=== PATIENT | male | born 1980 | race Caucasian/White ===

== ENCOUNTER 2023-08-07 10:20 | Outpatient (CLI) | payer OTHER ==
[2023-08-07 12:14] LABS: Anion Gap 11 mmol/L (10-20); BUN (Urea Nitrogen) 13 mg/dL (8.9-20.6); Calc. Creatinine Clearance 0 mL/min (70-130); Calcium 8.9 mg/dL (7.8-10.44); Carbon Dioxide 27 mmol/L (22-29); Chloride 108 mmol/L (98-107); Estimated GFR 110; Glucose 82 mg/dL (70-105); Sodium 142 mmol/L (136-145)
== END 2023-08-07 10:21 | disposition home or self-care (01) ==
LOC: CSHLAB 10:20
PROVIDERS: ATTEND Surgery
DX: Z01.818 Encounter for other preprocedural examination (principal); K40.90 Unilateral inguinal hernia, without obstruction or gangrene, not specified as recurrent
CPT/HCPCS: 80048; 93005; 93010

== ENCOUNTER 2023-08-09 05:55 | Day surgery (SDC) | payer OTHER ==
[2023-08-07 11:06] VITALS: BMI 27.1
[2023-08-09] MEDS ORDERED: Bupivacaine PF 0.5% 30 ML VIAL ONE (06:33)
[2023-08-09] MEDS ORDERED: EPINEPHrine 1 MG/ML VIAL ONE (06:33)
[2023-08-09] MEDS ORDERED: Midazolam HCl 2 mg/2 ml Vial ONE ×2 (07:13→07:21)
[2023-08-09] MEDS ORDERED: Clindamycin/D5W 600 mg/50 ml Premix Bag ONE (07:19)
[2023-08-09] MEDS ORDERED: Lidocaine 1% PF 5 ML VIAL ONE (07:21)
[2023-08-09] MEDS ORDERED: PROPOFOL 20 ML ONE (07:21)
[2023-08-09] MEDS ORDERED: Dexamethasone 4 mg/ml Vial ONE (07:21)
[2023-08-09] MEDS ORDERED: Esmolol 100 MG/10 ML VIAL ONE (07:21)
[2023-08-09] MEDS ORDERED: Ondansetron PF 4 MG/2 ML Vial ONE (07:21)
[2023-08-09] MEDS ORDERED: Rocuronium Bromide 10 MG/ML (10ML VIAL) ONE (07:21)
[2023-08-09] MEDS ORDERED: fentaNYL 50 mcg/mL 1 mL Vial ONE ×2 (07:21→07:46)
[2023-08-09] MEDS ORDERED: Ketorolac Tromethamine 30 MG (1 mL) VIAL ONE (08:01)
[2023-08-09] MEDS ORDERED: SUGAMMADEX SODIUM 200 MG/2 ML VIAL ONE (08:02)
[2023-08-09] MEDS ORDERED: HYDROmorphone 0.5 MG/0.5 ML SYRINGE ONE (08:02)
[2023-08-09] MEDS ORDERED: HYDROcodone/Acetaminophen 5/325 mg Tablet ONE (09:14)
== END 2023-08-09 10:05 | disposition home or self-care (01) ==
LOC: CSHSDC 05:55
PROVIDERS: ATTEND Surgery
PROC: 0YU54JZ Supplement Right Inguinal Region with Synthetic Substitute, Percutaneous Endoscopic Approach (ICD-10-PCS; principal; 2023-08-09)
DX: K40.90 Unilateral inguinal hernia, without obstruction or gangrene, not specified as recurrent (principal); Z88.0 Allergy status to penicillin; Z90.49 Acquired absence of other specified parts of digestive tract
CPT/HCPCS: C1781; J0171; J0665; J1100; J1170; J1885; J2250; J2405; J2704; J3010; J3490